=== PATIENT | female | born 1965 | race Caucasian/White ===

== ENCOUNTER → 2017-07-05 | Outpatient (CLI) | payer MEDICARE, OTHER ==
[2016-10-24 16:00] VITALS: BP 126/78
[~2017-07-05] MED LIST: ALPR0.5T PO; ONDA4TAB10 PO
--- NOTE | 2017-07-05 16:36 | RAD ---
Chest x-ray Indication: Dyspnea. History of recent pneumonia. Technique: PA and lateral chest Comparison: None Findings: Heart is top normal in size. There is mild blunting of the right costophrenic angle. Mild prominence of the interstitial markings noted. No pneumothorax. Visualized bony thorax is within normal limits. Impression: Blunting of the right costophrenic angle may represent trace pleural effusion. Mild diffuse first interstitial markings may represent atypical or viral pneumonia. Clinically correlate.
== END | disposition home or self-care (01) ==
LOC: DXRADRC 14:20
PROVIDERS: ATTEND Family Medicine
DX: R06.00 Dyspnea, unspecified (principal); J18.9 Pneumonia, unspecified organism
CPT/HCPCS: 71020